=== PATIENT | male | born 1975 ===

== ENCOUNTER 2018-10-28 22:38 | Emergency (ER) | payer BC ==
[2018-10-28 22:57] VITALS: BP 138/85; PULSE 85; RESP 18; TEMP 98.1; O2SAT 98
--- NOTE | 2018-10-28 23:53 | C.PDOC ---
History Of Present Illness 43 year old male presents to the ED c/o left shoulder pain radiating into his neck. Patient also reports not being able to move his head due to pain in his neck and upper back area. Patient states this symptoms feels like muscle spasms he had in the past. Patient denies injury, fall, trauma, headache, weakness, numbness, CP, SOB, heavy lifting. Time Seen by Provider: 10/28/18 23:04 Chief Complaint (Nursing): Upper Extremity Problem/Injury History Per: Patient History/Exam Limitations: no limitations Onset/Duration Of Symptoms: Days Current Symptoms Are (Timing): Still Present Quality: "Pain" Exacerbating Factor(s): Movement Recent travel outside of the [place]: No Additional History Per: Patient Past Medical History Reviewed: Historical Data, Nursing Documentation, Vital Signs Vital Signs: Last Vital Signs Temp 98.1 F 10/28/18 22:53 Pulse 85 10/28/18 22:53 Resp 18 10/28/18 22:53 BP 138/85 10/28/18 22:53 Pulse Ox 98 10/28/18 22:53 - Medical History PMH: No Chronic Diseases Surgical History: No Surg Hx Family History: States: Unknown Family Hx - Social History Hx Alcohol Use: Yes Hx Substance Use: No - Immunization History Hx Tetanus Toxoid Vaccination: No Hx Influenza Vaccination: No Hx Pneumococcal Vaccination: No Review Of Systems Constitutional: Negative for: Fever, Chills Eyes: Negative for: Vision Change Cardiovascular: Negative for: Chest Pain Respiratory: Negative for: Shortness of Breath Gastrointestinal: Negative for: Nausea, Vomiting, Abdominal Pain Musculoskeletal: Positive for: Neck Pain, Shoulder Pain Skin: Negative for: Rash Neurological: Negative for: Weakness, Numbness, Headache Physical Exam - Physical Exam Appears: Non-toxic, No Acute Distress Skin: Normal Color, Warm, Dry Head: Atraumatic, Normacephalic Eye(s): bilateral: Normal Inspection, PERRL, EOMI Neck: Decreased ROM (due to pain), No Midline Cervical Tenderness, Paracervical Tenderness (left paracervical and trapezius tenderness, spasm palpated in trapezius), Supple Chest: Symmetrical Cardiovascular: Rhythm Regular Respiratory: Normal Breath Sounds, No Rales, No Rhonchi, No Wheezing Back: Muscle Spasm (left trapezius), Other (left trapezius tendernes) Extremity: Normal ROM (left shoulder decreased due to pain), Capillary Refill (< 2 seconds) Pulses: Left Radial: Normal, Right Radial: Normal Neurological/Psych: Oriented x3, Normal Speech, Normal Cognition Gait: Steady ED Course And Treatment O2 Sat by Pulse Oximetry: 98 (ON RA) Pulse Ox Interpretation: Normal Medical Decision Making Medical Decision Making: Plan: * Valium 5 mg PO * Toradol 60 mg IM pt still with pain. one percocet ordered. 0111 pt with decreased pain. will d/c home with nsaids and flexeril Disposition Counseled Patient/Family Regarding: Diagnosis, Need For Followup, Rx Given - Disposition Disposition: HOME/ ROUTINE Disposition Time: 01:12 Condition: IMPROVED Additional Instructions: Avoid heavy lifitng. Cold or warm compress to right shoulder area several times a day. Take Naproxen and flexeril as prescrbied. No driving or operating machinery with flexeril- makes you sleepy. Follo up with your doctor in 1-2 days. Prescriptions: Cyclobenzaprine [Cyclobenzaprine HCl] 10 mg PO Q8 #9 tab Naproxen 500 mg PO BID #20 tab Instructions: Muscle Spasms (DC) Forms: [employer] [facility] ([place]vian), General Discharge Instructions - Clinical Impression Clinical Impression: Trapezius muscle spasm - PA / MIGRATION AGENT / Resident Statement MD/DO has reviewed & agrees with the documentation as recorded. - Scribe Statement The provider has reviewed the documentation as recorded by the Scribe Gunnar Campbell All medical record entries made by the Scribe were at my direction and personally dictated by me. I have reviewed the chart and agree that the record accurately reflects my personal performance of the history, physical exam, medical decision making, and the department course for this patient. I have also personally directed, reviewed, and agree with the discharge instructions and disposition.
[2018-10-29] MEDS ORDERED: Oxycodone/Acetaminophen 5/325 mg Tab PO STA (00:32)
[2018-10-29] MEDS ORDERED: Oxycodone/Acetaminophen 5/325 mg Tab ONE (00:46)
== END 2018-10-29 01:20 | disposition home or self-care (01) ==
LOC: C.ER 22:38
DX: M62.838 Other muscle spasm (principal)
CPT/HCPCS: 96372; 99284; J1885